=== PATIENT | male | born 1960 | race Caucasian/White ===

== ENCOUNTER → 2022-02-14 | Day surgery (SDC) | payer MEDICARE ==
[~2022-02-14] VITALS: Ht 190.5 cm; Wt 135.2 kg
[~2022-02-14] MED LIST: ASPIRIN EC81 MG PO; ATORVASTATIN CA80 MG PO; BENADRYL25 MG PO; CYCLOBENZAPRINE10 MG PO; FLOMAX0.4 MG PO; LISINOPRIL40 MG PO; PRILOSEC20 MG PO; SINGULAIR10 MG PO; TOPROL XL 50 MG50 MG PO; VENTOLIN HFA IN18 GM INH; ZYRTEC10 M3 PO
== END | disposition home or self-care (01) ==
LOC: FAS 09:45
DX: Z12.11 Encounter for screening for malignant neoplasm of colon (principal); D12.5 Benign neoplasm of sigmoid colon; K57.30 Diverticulosis of large intestine without perforation or abscess without bleeding; K64.8 Other hemorrhoids; Z80.0 Family history of malignant neoplasm of digestive organs; I10 Essential (primary) hypertension; E78.00 Pure hypercholesterolemia, unspecified; K21.9 Gastro-esophageal reflux disease without esophagitis; F17.200 Nicotine dependence, unspecified, uncomplicated; Z79.82 Long term (current) use of aspirin; Z79.899 Other long term (current) drug therapy; Z72.89 Other problems related to lifestyle
CPT/HCPCS: J2250; J2704; J7120